=== PATIENT | female | born 1960 | race Two or more races ===

== ENCOUNTER 2024-10-01 04:43 | Emergency (ER) | payer MEDICAID, SELFPAY ==
[2024-10-01 04:44] VITALS: BMI 35.6
[2024-10-01 04:57] VITALS: BP 114/66; PULSE 70; RESP 20; TEMP 36.9; O2SAT 100
--- NOTE | 2024-10-01 05:03 | EKG_ITS ---
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
--- NOTE | 2024-10-01 05:29 | XR_ITS ---
Examination: CT brain head without contrast. 2-D sagittal coronal reconstructions Date and time of exam:October 01, 2024 0805 hours INDICATIONS: Onset dizziness episodes this morning CTDI: vol (mGy):51.3 DLP: (mGycm):1029 Technique: Multiple CT axial sections of the brain have been obtained, 5 mm slice thickness. Contrast has not been administered. 2-D sagittal, coronal reconstructions have been obtained Low dose protocols were performed. One or more of the following dose reduction techniques were used; automated exposure control, adjustment of the mA and/or KV according to patient size, use of iterative reconstruction technique. Findings: No significant ventricular enlargement. Intra-axial or extra-axial hemorrhage density is not seen. No mass effect or midline shift Basal cisterns are not remarkable. Fourth ventricle is midline. Cranial vault intact. Impression: Negative for acute hemorrhage, mass effect or midline shift Advise clinical correlation and follow up accordingly
--- NOTE | 2024-10-01 05:29 | XR_ITS ---
Examination: PA chest single view TECHNIQUE: Upright PA chest single view Date and time: October 01, 2024, 0549 hours INDICATIONS: Dizziness weakness today. FINDINGS: Minor accentuation of basilar bronchovascular markings. Normal heart size No pneumonia or pulmonary edema IMPRESSION: Basilar bronchitis pattern
--- NOTE | 2024-10-01 05:30 | PD.EDRME ---
Rapid Medical Screening Exam [facility] Arrival date/time: 10/01/24 04:43 63F with history of sinus issues presents to ED with vertigo-sensation when she woke up today around 4 PM, as well as N/V. Patient went to sleep normal. Patient denies weakness, AMS, seizures, vision changes, fall/trauma, and slurred speech. with her states her behavior is baseline. Vertigo is worse with movement of head. Chief Complaint: Dizziness Vital signs: Vital Signs Temperature 98.4 F 10/01/24 04:57 Pulse Rate 70 10/01/24 04:57 Respiratory Rate 20 10/01/24 04:57 Blood Pressure 114/66 10/01/24 04:57 Pulse Oximetry (%) 100 10/01/24 04:57 Oxygen Delivery Method Room Air 10/01/24 04:57
[2024-10-01] MEDS: ONDANSETRON ODT 4 MG TABRAP PO (05:39)
[2024-10-01] MEDS: MECLIZINE HCL 25 MG TABLET 50 MG PO (05:39)
[2024-10-01 05:54] LABS: Collection Type, Urine Clean Catch
[2024-10-01 06:12] LABS: Amphetamine/Methamp Scrn,U Negative (Negative); Barbiturate Screen,Urine Negative (Negative); Benzodiazepines Screen,Urine Negative (Negative); Benzoylecgonine Screen, Ur Negative (Negative); Fentanyl Screen,Urine Negative (Negative); Opiate Screen,Urine Negative (Negative); THC Screen,Urine Negative (Negative)
[2024-10-01 06:14] LABS: Bilirubin,Urine Negative (Negative); Blood,Urine Negative (Negative); Clarity,Urine Turbid (Clear/Hazy); Color,Urine Yellow (Lt Yel-Yel); Glucose, Urine Negative (Negative); Ketones,Urine Negative (Negative); Leukocyte Esterase,Urine Positive (Negative); Nitrite,Urine Negative (Negative); PH,Urine 6.5 (5.0-7.0); Protein,Urine Trace (Neg - Trace); RBC,Urine 6 /hpf (0-3); Specific Gravity,Urine 1.026 (1.001-1.035); Squamous Epithelial Cell,Urine 8 /hpf (0-5); Urobilinogen,Urine Negative mg/dL (0.0-1.0); WBC,Urine 52 /hpf (0-5)
[2024-10-01 06:17] VITALS: BP 133/76; PULSE 63; RESP 19; TEMP 36.8; O2SAT 100
[2024-10-01 07:11] LABS: Basophils # (Auto) 0.1 Thou/mm3 (0.0-0.2); Basophils % (Auto) 1 % (0-2.5); Eosinophils # (Auto) 0.1 Thou/mm3 (0.0-0.5); Eosinophils % (Auto) 1 % (0-10); Hematocrit 37.1 % (36.0-46.0); Hemoglobin 12.8 g/dL (12.0-16.0); Immature Granulocytes % (Auto) 0 % (0-0); Immature Granulocytes Auto 0.01 Thou/mm3 (0.00-0.00); Lymphocytes # (Auto) 1.7 Thou/mm3 (1.0-4.8); Lymphocytes % (Auto) 22 % (10-50); Mean Corpuscular HGB Conc 34.5 g/dl (31.0-37.0); Mean Corpuscular Hemoglobin 29.4 pg (25.0-35.0); Mean Corpuscular Volume 85 fL (80-100); Monocytes # (Auto) 0.4 Thou/mm3 (0.0-0.8); Monocytes % (Auto) 5 % (0-12); Neutrophils # (Auto) 5.5 Thou/mm3 (1.8-7.7); Neutrophils % (Auto) 72 % (37-80); Nucleated Red Blood Cell % 0 /100 WBC (0); Platelet Count 222 Thou/mm3 (140-440); RDW Standard Deviation 43.8 fL (36.4-46.3); Red Blood Count 4.35 Miln/mm3 (4.00-5.20); White Blood Count 7.7 Thou/mm3 (3.6-11.0)
[2024-10-01 07:32] LABS: Alanine Aminotransferase 22 U/L (10-49); Albumin, Serum 4.5 gm/dL (3.4-4.8); Albumin/Globulin Ratio 2.1 (1.2-2.2); Alkaline Phosphatase 76 U/L (46-116); Anion Gap 10 (7-16); Aspartate Amino Transferase 21 U/L (0-34); BUN/Creatinine Ratio 14 Ratio (12-20); Bilirubin,Total 0.6 mg/dL (0.3-1.2); Blood Urea Nitrogen 10 mg/dL (9-23); Calcium 9.4 mg/dL (8.3-10.6); Calcium (Corrected) 9.4 mg/dL (8.5-10.1); Carbon Dioxide 25.8 mMol/L (20.0-31.0); Chloride 108 mMol/L (98-107); Creatinine (Component) 0.7 mg/dL (0.6-1.3); Estimated Creatinine Clearance 87.2 mL/min (>60); Globulin 2.1 gm/dL (2.3-3.5); Glucose 121 mg/dL (74-106); Magnesium 2.1 mg/dL (1.6-2.6); Osmolality,Calculated 286 (275-295); Potassium 3.6 mMol/L (3.4-5.1); Sodium 144 mMol/L (136-145); Total Protein 6.6 gm/dL (5.7-8.2); Troponin I < 0.020 ng/mL (0.0-0.045); eGFR > 60 See Note
[2024-10-01 07:35] LABS: B-Type Natriuretic Peptide 22 pg/mL (0-100)
[2024-10-01 08:00] VITALS: BP 129/81; PULSE 72; RESP 18; TEMP 36.6; O2SAT 96
--- NOTE | 2024-10-01 08:01 | EDNOTE_ITS ---
ED General RME/HPI General Chief complaint: Dizziness Stated complaint: VERTIGO Arrival date/time: 10/01/24 04:43 RME / HPI RME / HPI narrative: 10/01/24 04:43 63F with history of sinus issues presents to ED with vertigo-sensation when she woke up today around 4 PM, as well as N/V. Patient went to sleep normal. Patient denies weakness, AMS, seizures, vision changes, fall/trauma, and slurred speech. with her states her behavior is baseline. Vertigo is worse with movement of head. DR. ZEPEDA MAIN ED EVALUATION: 63 year old female with past medical history significant for sinus problems and seasonal allergies presents to the Emergency Department with complaints of vertigo, room spinning, since 4 AM. She states that moving her head exacerbates her symptoms. Associated symptoms include sweating, nausea, and generalized weakness. She states she was very weak and her assisted her; no fall or injury. No loss of consciousness, headache, or other symptoms reported at this time. Related Data Home Medications ?Medication ?Instructions ?Recorded ?Confirmed fluticasone propionate 50 1 spray intranasal QDAY 04/1306/03/22 mcg/actuation nasal spray,suspension omeprazole 40 mg capsule,delayed 40 mg PO BID 06/03/22 06/03/22 release terbinafine HCl 250 mg tablet 250 mg PO BID 06/03/22 0 06/03/22 Allergies Allergy/AdvReac Type Severity Reaction Status Date / Time Sulfa (Sulfonamide Allergy Intermediate MUSCLE Verified 10/01/24 04:49 Antibiotics) SPASM Review of Systems Review of Systems Systems Reviewed: All systems reviewed, normal except as documented Past Medical History Past Medical History CARDIAC: Positive Cardiac Disorders and Heart Murmur RESPIRATORY: Positive Asthma REPRODUCTIVE: Positive Previous Pregnancies () MUSCULOSKELETAL: Positive Musculoskeletal Disorders and Arthritis HEMATOLOGIC: Positive Anemia (HX NO CURRENT PROBLEMS) OTHER HISTORY: Positive Shingles (2015), Blood Transfusions and Chicken Pox Family History FAMILY HISTORY: Positive Family Cancer (GRANDMA CERVIX CA) and Family Surgery Surgical History SURGICAL: Positive Eye Surgery (LASIK EYE SURGERY BILATERAL EYES), Tonsillectomy and Section (X2) Social History SMOKING STATUS: Never smoker SUBSTANCE USE: does not use ALCOHOL: Never ED Exam Narrative Physical exam: Physical Exam: General: The vital signs were reviewed. The patient is non-toxic, in no apparent distress and appears healthy with a patent airway, no respiratory distress and has no apparent circulatory problems. Head & Scalp: Patient holds her head still because she does not want to have vertigo symptoms elicited. Normocephalic, atraumatic. Face: Appears normal and is without lesions, deformity. Ears: Left external pinna appears normal. Right external pinna appears normal. Eyes: Has nystagmus when gazing to the left otherwise the sclera is anicteric. No obvious photophobia. The Left and Right Orbit/Lid/Conjunctiva appears normal without swelling, discoloration or injection. Nose: The nose is without deformity, discharge or tenderness; Throat: Appears normal. The mucous membranes are pink and moist without exudates, redness or mass seen. The tongue appears normal. Neck: The neck is supple and no apparent mass or adenopathy. Chest: The chest wall is normal in size and symmetry and has no chest wall tenderness or crepitus. The patient displays normal ventilator effort without retractions, accessory muscle use and has adequate air movement bilaterally with no wheezes and no rales. Cardiovascular: Regular rate and rhythm; No murmurs, rubs, or gallops; Gastrointestinal: The abdomen appears normal. No obvious hernias or mass. The abdomen is soft and benign, non-distended, with no pain, no guarding and no rebound tenderness. Bowel sounds are present and normal sounding. No CVA tenderness. Genitourinary: Back/Spine: Nontender Extremities/Musculoskeletal/lymphatic: The bilateral upper and lower extremities are warm. There is no evidence of arterial insufficiency. There is no evidence of venous insufficiency/edema. The patient spontaneously moves bilateral upper and lower extremities with no pain and no limitation of movement. There is no apparent, injury or trauma. Skin: The skin is warm, dry and intact. No rashes. No petechia. No purpura. No abnormal bruising. The color is appropriate with no cyanosis. Mental status/Psychiatric: Mental status is appropriate for age. The patient has no apparent delusions, visual hallucinations, no apparent audible hallucinations. The patient has no apparent suicidal thoughts/ideation and no apparent homicidal thoughts/ideation. Neurological: The patient is awake, alert, interactive, cordial, cooperative and is rola ented to name and situation. The patient follows commands and answers historical question with no impairment. There is no visual disturbance apparent. The pupils are equal and reactive bilaterally with normal eye movements and no diplopia The bilateral upper and lower extremities have normal strength, normal range of motion and normal functioning. The gait, station and balance were not tested due to acuity Course Quality Measures none Orders Category Date Time Status Blood glucose [Bedside Blood Glucose] NOW Care 10/01/24 05:03 Active EKG (ED ONLY) *Do not use* NOW Care 10/01/24 05:[address] head/brain wo con Stat Exams 10/01/24 05:29 Completed EKG (ED Only) Stat Exams 10/01/24 05:03 Draft XR chest 1V portable Stat Exams 10/01/24 05:29 Completed B-Type Natriuretic Peptide Stat Lab 10/01/24 07:00 Completed CBC Stat Lab 10/01/24 07:00 Completed Comprehensive Metabolic Panel Stat Lab 10/01/24 07:00 Completed Drug Screen,Urine Stat Lab 10/01/24 05:49 Completed Magnesium Stat Lab 10/01/24 07:00 Completed Troponin I Stat Lab 10/01/24 07:00 Completed Urinalysis Stat Lab 10/01/24 05:49 Completed Meclizine HCl [Antivert] Med 10/01/24 05:29 Discontinued 50 mg PO X1 ONE Ondansetron Odt [Zofran Odt] Med 10/01/24 05:30 Discontinued 4 mg PO X1 ONE Sodium Chloride 0.9% 1000 ml [Ns] 1,000 ml Med 10/01/24 08:02 Active IV 150 mls/hr Sodium Chloride 0.9% 1000 ml [Ns] 1,000 ml Med 10/01/24 08:02 Discontinued IV 999 mls/hr Vital Signs Vital signs: Vital Signs Temperature 98.4 F 10/01/24 04:57 Pulse Rate 70 10/01/24 04:57 Respiratory Rate 20 10/01/24 04:57 Blood Pressure 114/66 10/01/24 04:57 Pulse Oximetry (%) 100 10/01/24 04:57 Oxygen Delivery Method Room Air 10/01/24 04:57 Discharge Plan Plan Patient Disposition: HOME (Self Care) Prescriptions/Referrals Prescriptions/Med Rec: No Action fluticasone propionate 50 mcg/actuation spray,suspension 1 spray INTRANASAL QDAY omeprazole 40 mg capsule,delayed release(DR/EC) 40 mg PO BID terbinafine HCl 250 mg tablet 250 mg PO BID Patient Comments: TAKE 1 TABLET BY MOUTH EVERY DAY FOR 90 DAYS Referrals: Edna Andersen PA-C [Primary Care Provider] - In 1 week Problem List Clinical Impression: Vertigo Impression comment: None clean-catch false positive pyuria Patient/Caregiver Discharge Instructions Additional Instructions: As discussed you have vertigo. You can look this up online and learn about the [place] maneuvers. You should be better in 3 to 5 days. No driving or operating equipment be cautious and expected to be worse in the morning when you get up. If you are getting worse or incapacitated please return for reevaluation. See your doctors in 2 to 3 days for reevaluation. Stay well-hydrated. Avoid sudden head turns or position changes as this will make your symptoms worse. As we discussed your urine is not on clean-catch specimen and there is evidence of white cells there but there is also evidence of squamous cells most likely this is a contaminant. Because you are having no urinary symptoms I am not going to treat you for UTI at this time. If you begin having any urinary symptoms reconnect with your doctor to address this further Print Language: Wallisian Stand Alone Forms: [employer]., Patient Portal Info Letter MDM Narrative MDM hospital course: Patient presents with new onset vertigo this morning with nausea vomiting and weakness that is better since she got some Zofran upfront. Initial neuroexam is entirely negative she has normal motor function normal balance and no truncal ataxia. We gave her a liter of fluid and she is now up walking and feels much better. Her medical workup was essentially negative with a normal CBC and CMP was negative her urine was a nonclean-catch specimen which is contaminated as 8 squames 52 white cells and 6 red cells. Patient has no dysuria no urinary symptoms and she states she knows when she has a urine infection and therefore this is a false positive not going to treat. Her vertigo has resolved this time she knows to get up slowly. She is daniel follow-up with her doctor no driving operating equipment and noticed to move her head slowly. She knows return if she is getting worse. She is advised follow-up with her doctor get referred to specialist if this persist beyond 3 to 5 days Anitra Mayo, am scribing for and in the presence of Dr. Zepeda. Clinical Information Provided by patient Medical Records Reviewed [facility] Meds/Rx Considered, not Ordered None Labs/Rad/Tests considered, not Ordered None Chronic Illness/Social Conditions Add or document further as needed: sinus problems and seasonal allergies EKG EKG Interpretation narrative: My interpretation: EKG performed at 0507 hours, sinus rhythm, rate 71, no STEMI Lab Interpretation Labs: see narrative above Imaging Imaging interpretation: see narrative above Radiology reports / interpretation(s): Procedure(s): XR chest 1V portable Accession Number(s): [id number] cc: Edna Andersen PA-C; Yefri Dawson MD; Edwin Stevenson PA-C~ Examination: PA chest single view TECHNIQUE: Upright PA chest single view Date and time: October 01, 2024, 0549 hours INDICATIONS: Dizziness weakness today. FINDINGS: Minor accentuation of basilar bronchovascular markings. Normal heart size No pneumonia or pulmonary edema IMPRESSION: Basilar bronchitis pattern Dictated By: Yefri Dawson MD Medication Administration(s) Medication Administration History Sodium Chloride (Ns) 1,000 mls @ 150 mls/hr IV .Q6H40M ONE Stop: 10/01/24 14:41 Discontinued Medications Sodium Chloride (Ns) 1,000 mls @ 999 mls/hr IV .Q1H1M ONE Stop: 10/01/24 09:02 Last Admin: 10/01/24 08:27 Dose: 999 mls/hr Documented By: MIKE Meclizine HCl (Meclizine Hcl 25 Mg Tablet) 50 mg PO X1 ONE Stop: 10/01/24 05:30 Last Admin: 10/01/24 05:39 Dose: 50 mg Documented By: SE Ondansetron HCl (Ondansetron Odt 4 Mg Tabrap) 4 mg PO X1 ONE; Protocol Stop: 10/01/24 05:31 Last Admin: 10/01/24 05:39 Dose: 4 mg Documented By: SE Diagnosis Differential diagnosis: vertigo, TIA, dehydration Most likely dx, and/or detailed dx discussion: This seems to be a peripheral vertigo as there is no obvious neurological symptoms otherwise Dispositon Disposition: Discharge Home Disposition comments: Advised at great length patient appears understand.
[2024-10-01] MEDS: SODIUM CHLORIDE 0.9% 1000 ML 1,000 ML 999 ML IV (08:27)
--- NOTE | 2024-10-01 08:51 | PC.NURSE ---
Patient came in to ED for dizziness that started around 0400. Patient woke up nauseous and felt like room was spinning. Patient's dizziness is currently better, patient able to ambulate to restroom with stand by assist. Patient is alert and oriented X4, denies blurry vision, denies head ache. Per Dr. Zepeda patient will receive 1 Liter of fluids and will be revaluated for discharge.
[2024-10-01 10:23] VITALS: BP 125/71; PULSE 68; RESP 19; TEMP 36.9; O2SAT 95
== END 2024-10-01 10:26 | disposition home or self-care (01) ==
PROVIDERS: Physician Assistant; Emergency Provider Emergency Medicine; PCP Physician Assistant Medical
DX: R42 Dizziness and giddiness (principal); R53.1 Weakness; R94.31 Abnormal electrocardiogram [ECG] [EKG]
CPT/HCPCS: 36415; 70450; 71045; 80053; 80307; 81001; 83735; 83880; 84484; 85025; 93005; 96360; 99284; J7030; Q0162; A9270

== ENCOUNTER → 2024-11-28 | Outpatient (CLI) | payer MEDICAID, SELFPAY ==
--- NOTE | 2024-11-28 13:45 | XR_ITS ---
Examination: Screening digital mammography, bilateral Computer aided detection 3-D breast Tomosynthesis, bilateral Date and time of exam: November 28, 2024 1350 hours compared to examinations April 11, 2013 Indication: Screening Technique: Nonmagnified MLO, CC views of the breasts to been obtained, reconstructed from 3-D Tomosynthesis images. R2 computer aided detection program utilized for evaluation of suspicious masses and/or abnormal calcifications. 3-D Tomosynthesis images obtained. Findings: The breasts are heterogeneously dense, which may obscure small masses Benign calcifications. No interval suspicious masses Impression: BI-RADS category II: Benign Findings. Recommend 1 year follow-up mammogram.
== END | disposition home or self-care (01) ==
LOC: CDIM 13:35
PROVIDERS: Referring Provider Physician Assistant Medical; Visit Provider Physician Assistant Medical
DX: Z12.31 Encounter for screening mammogram for malignant neoplasm of breast (principal); R92.323 Mammographic fibroglandular density, bilateral breasts; R92.1 Mammographic calcification found on diagnostic imaging of breast
CPT/HCPCS: 77063; 77067